=== PATIENT | male | born 1955 | race Two or more races ===

== ENCOUNTER 2024-08-16 14:35 | Outpatient (RCR) | payer OTHER, MEDICAID, SELFPAY ==
--- NOTE | 2024-08-16 14:47 | PT.OIERPT ---
PT OP Initial Eval Patient Information Outpatient Physical Therapy Treatment Date: 08/16/24 Visit Reasons: right hand pain Medical Diagnosis: M79.641 Start of Care: 08/16/24 Date of Onset: 2019 Smoking Status Smoking Status: Never smoker Initial Assessment Subjective: Pt is 69 yr old male s/p CVA x2 with R hemiplegia reports R hand numbness. It's difficult to grasp objects and the R shoulder hurts sometimes to reach up. PMH: type 2 DM, HTN, high cholesteerol, CVa with R hemiplegia Pt goal: for the numbness in the hand to go away Objective: Willie learning support teacher strength: R: 35 lbs, L: 65 lbs Thumb to finger opposition: full Fist AROM: full C/S Screen: negative for pain or numbness in B hands or UE's Assessment: Pt presents with R hand numbness and decreased learning support teacher strength consistent with CVA with R hemiplegia. Pt not likely going to benefit from skilled therapy to meet goals due to chronicity since the CVA and was given HEP and theraband and printouts to do at home. Short Term and Intermediate Goals Eval D/C Treatment Plan Eval and D/C Certification Dates: 08/16/24 Procedure Charges OP PT Eval Mod Complex 30 minutes: Yes
== END 2024-09-10 23:59 | disposition home or self-care (01) ==
LOC: CPTX 14:35
PROVIDERS: PCP Nurse Practitioner Family; Referring Provider Nurse Practitioner Family; Visit Provider Nurse Practitioner Family
DX: M79.641 Pain in right hand (principal); R20.0 Anesthesia of skin; I69.951 Hemiplegia and hemiparesis following unspecified cerebrovascular disease affecting right dominant side; E11.9 Type 2 diabetes mellitus without complications; I10 Essential (primary) hypertension
CPT/HCPCS: 97162